=== PATIENT | male | born 1985 | race Caucasian/White ===

== ENCOUNTER 2019-01-07 15:20 | Emergency (ER) | payer OTHER ==
--- NOTE | 2019-01-07 18:02 | UC ---
Upper Extremity HPI - HPI Summary HPI Summary: 33 y/o male presents to the urgent care c/o pt states today while driving into work he felt a pain to lt arm pit. pt states when he took his jacket off, his lt arm was tingling. pt states it feels like when he hits his funny bone. pt states last week, he began to have pain to rt lower back and travels down his rt leg. pt states he also has had a feeling that he is unable to use his muscles for any length of time because they ach. - History of Current Complaint Chief Complaint: UCUpperExtremity Stated Complaint: PAIN IN ARMPIT AND ARM NUMBNESS Time Seen by Provider: 01/07/19 17:13 Hx Obtained From: Patient Onset/Duration: Gradual Onset Pain Intensity: 4 - Allergies/Home Medications Allergies/Adverse Reactions: Allergies Allergy/AdvReac Type Severity Reaction Status Date / Time Penicillins Allergy Hives Verified 01/07/19 15:38 Home Medications: Home Medications buPROPion TAB* [Wellbutrin TAB*] 75 mg PO BID 01/07/19 [History Confirmed ] PMH/Surg Hx/FS Hx/Imm Hx - Surgical History Surgical History: Yes Surgery Procedure, Year, and Place: removal of skin ca - Social History Alcohol Use: None Substance Use Type: None Smoking Status (MU): Light Every Day Tobacco Smoker Type: Cigarettes Physical Exam Vital Signs: Initial Vital Signs Temp 97.7 F 01/07/19 15:26 Pulse 83 01/07/19 15:26 Resp 18 01/07/19 15:26 BP 141/87 01/07/19 15:26 Pulse Ox 98 01/07/19 15:26 Discharge - Discharge Plan Condition: Stable Disposition: HOME-RECOMMEND TO ED Prescriptions: Cyclobenzaprine TAB* [Flexeril 10 MG TAB*] 10 mg PO TID PRN #21 tab PRN Reason: Spasms - Neck Ibuprofen TAB* [Motrin TAB* 600 MG] 600 mg PO Q6H PRN #30 tab PRN Reason: Pain Patient Education Materials: Muscle Spasm (ED) Forms: *Work Release Referrals: [facility] [Outside] - 1 Day Additional Instructions: 1- Please take Ibuprofen PO as directed after meals for pain. 2- Take Flexeril PO as directed for muscle spasm. Please do not drive while taking the medication. 3- Avoid strenuous exercise or heavy lifting. 4- If symptoms worsen and your develop chest pain, SOB, palpitations Please go immediately to the ER for further management. Otherwise f/u with your PCP is not improvement of symptoms 5- Final radiology report still pending until tomorrow morning. You will be notified of any abnormal result for further management - Billing Disposition and Condition Condition: STABLE Disposition: Home-Recommend to ED
[2019-01-07 18:38] VITALS: BP 132/84
--- NOTE | 2019-01-08 08:16 | UC ---
- Progress Note Progress Note: Lumbar XR: IMPRESSION: #. Negative exam. Cervical XR: IMPRESSION: #. Negative exam. No change in plan of care Course/Dx - Diagnoses Provider Diagnoses: Muscle spasm Discharge - Sign-Out/Discharge Documenting (check all that apply): Post-Discharge Follow Up All imaging exams completed and their final reports reviewed: Yes - Discharge Plan Condition: Stable Disposition: HOME-RECOMMEND TO ED Prescriptions: Cyclobenzaprine TAB* [Flexeril 10 MG TAB*] 10 mg PO TID PRN #21 tab PRN Reason: Spasms - Neck Ibuprofen TAB* [Motrin TAB* 600 MG] 600 mg PO Q6H PRN #30 tab PRN Reason: Pain Patient Education Materials: Muscle Spasm (ED) Forms: *Work Release Referrals: [facility] [place] [facility] [Outside] - 1 Day Additional Instructions: 1- Please take Ibuprofen PO as directed after meals for pain. 2- Take Flexeril PO as directed for muscle spasm. Please do not drive while taking the medication. 3- Avoid strenuous exercise or heavy lifting. 4- If symptoms worsen and your develop chest pain, SOB, palpitations Please go immediately to the ER for further management. Otherwise f/u with your PCP is not improvement of symptoms 5- Final radiology report still pending until tomorrow morning. You will be notified of any abnormal result for further management - Billing Disposition and Condition Condition: STABLE Disposition: Home-Recommend to ED
== END 2019-01-07 19:04 | disposition home health service (06) ==
LOC: UCEAST 15:20
DX: M62.838 Other muscle spasm (principal); F17.210 Nicotine dependence, cigarettes, uncomplicated; Z88.0 Allergy status to penicillin
CPT/HCPCS: 72050; 72080; 99212; G0463